=== PATIENT | male | born 1970 | race Caucasian/White ===

== ENCOUNTER 2020-10-24 16:27 | Emergency (ER) | payer BC, OTHER ==
[~2020-10-24] VITALS: Ht 177.8 cm; Wt 55.0 kg
[2020-10-24 16:38] VITALS: BP 122/69
[2020-10-24] MEDS ORDERED: ceFAZolin SODIUM 2 GM in IV DEXTROSE 5% 50 ML IV ONE (16:45)
--- NOTE | 2020-10-24 17:11 | RAD ---
EXAM: XR HAND_RIGHT 3 VIEWS 10/24/2020 4:51 PM CLINICAL INDICATION: Foreign body, with splinter fifth MCP joint. COMPARISON: None TECHNIQUE: 3 views of the right hand FINDINGS: No acute fracture. Alignment is normal. Joint spaces are maintained. No soft tissue abnorm ality. No radiopaque foreign body. IMPRESSION: No radiopaque foreign body. Electronically signed by: Billie Mckeon MD (10/24/2020 5:08 PM) [id number]
[2020-10-24] MEDS ORDERED: LIDOCAINE 2% 20 ML VIAL. IJ ONE (18:30)
[2020-10-24] MEDS ORDERED: CEPH500C PO (18:59)
--- NOTE | 2020-10-24 18:59 | PHYS DOC ---
Past History Past Medical History: No Pertinent History (ELIGIO COVINGTON APRN) Past Surgical History: Angioplasty (ELIGIO COVINGTON APRN) Smoking: Cigarettes, Less than 1pk/day Alcohol Use: None Drug Use: None (ELIGIO COVINGTON APRN) Adult General Chief Complaint Chief Complaint: PUNCTURE WOUND HPI HPI Patient is a 50-year-old male who presents emergency department chief complaint of right hand pain infection after suffering a splinter approximately 2 weeks ago while moving a wooden furniture. Patient states he thought he got the splinter out however it started turning red and becoming swollen over the past 2 weeks. Patient states his son squeezed the area and expelled purulent material. Patient fears that there might be a splinter left in his hand. Patient denies numbness or tingling, denies any loss of movement of the hand or fingers. Patient states his last tetanus immunization was less than 5 years ago. Patient denies any allergies to medications, states he sees Dr. Murray for primary care, states he has a cardiac history that he takes medications for. Patient denies chest pains or shortness of breath, denies recent fever or chills, patient denies rashes of his skin or swelling of his extremities or lymph nodes. Patient denies pain to the area of concern. Patient denies any other physical complaints or physical concerns. (ELIGIO COVINGTON APRN) Review of Systems Review of Systems 14 body systems of review of systems have been reviewed. See HPI for pertinent positives and negative responses, otherwise all other systems are negative, nonpertinent or noncontributory. (ELIGIO COVINGTON APRN) Current Medications Current Medications Current Medications Medications (Trade) Dose Ordered Sig/Yuli Start Time Stop Time Status Last Admin Dose Admin Cefazolin Sodium 2 gm/Dextrose 50 ml @ 100 mls/hr 1X ONCE 10/24/20 16:45 10/24/20 17:14 DC 10/24/20 17:14 100 MLS/HR Lidocaine HCl 20 ml 1X ONCE 10/24/20 18:30 10/24/20 18:31 DC (ELIGIO COVINGTON APRN) Allergies Allergies Allergies Uncoded Allergies Type Severity Reaction Last Updated Verified BEE VENOM Allergy Unknown 10/24/20 (ELIGIO COVINGTON APRN) Physical Exam Physical Exam Constitutional: Well developed, well nourished, no acute distress, non-toxic appearance. 50-year-old male in no apparent distress. HENT: Normocephalic, atraumatic. Eyes: Conjunctiva normal, no discharge. Neck: Normal range of motion, no stridor. Cardiovascular: No cyanosis appreciated, distal cap refill less than 2 seconds. Lungs & Thorax: Patient is in no respiratory distress, no audible adventitious lung sounds appreciated. Abdomen: Nontender, no abnormalities noted. Skin: Warm, dry, no erythema, no rash. See extremity note for focused skin assessment. Back: No tenderness, no deformities. Extremities: No tenderness, no cyanosis, no clubbing, ROM intact, no edema. Except for right hand near #5 MCP joint palmar aspect erythematous without purulent drainage, distal cap refill less than 2 seconds, full range of motion of phalangeal joints of the right hand, pain to palpation at palmar aspect #5 MCP joint area. Scant amount of serous drainage from palmar aspect erythematous area where patient states he had splinter foreign body injury. Patient reports this is the area that the purulent drainage was expelled from. Neurologic: Alert and oriented X 3, normal motor function, normal sensory function, no focal deficits noted. Psychologic: Affect normal, judgement normal, mood normal. (ELIGIO COVINGTON APRN) Current Patient Data Vital Signs Vital Signs Date Time Temp Pulse Resp B/P (MAP) Pulse Ox O2 Delivery O2 Flow Rate FiO2 10/24/20 16:38 98.4 75 16 122/69 97 (ELIGIO COVINGTON APRN) EKG EKG [] (ELIGIO COVINGTON APRN) Radiology/Procedures Radiology/Procedures [] (ELIGIO COVINGTON APRN) Heart Score C/O Chest Pain: No Risk Factors: Risk Factors: DM, Current or recent (<one month) smoker, HTN, HLP, family history of CAD, obesity. Risk Scores: Risk Factors: DM, Current or recent (<one month) smoker, HTN, HLP, family history of CAD, obesity. (ELIGIO COVINGTON APRN) Course & Med Decision Making Course & Med Decision Making Pertinent Labs and Imaging studies reviewed. (See chart for details) 50-year-old male, vital signs reviewed, presents emergency department concerning a possible splinter left in his hand from a splinter injury 2 weeks ago. Physical examination concerning for possible foreign body, area is erythematous, will order x-ray to rule out foreign body, 2 g Ancef related to puncture wound injury, ED planning will send home with prescription for 500 mg Keflex p.o. 4 times daily x10 days. Patient states he is amenable to this plan. Offered patient pain medication, patient states it does not hurt. Patient states he does not need any pain medication. X-ray unremarkable, did not show foreign body in area of concern, discussed with patient will anesthetize area and explore for foreign body, patient amenable to this plan, see I&D procedure note. No foreign body was appreciated with exploration of concern site, ordered bacitracin and Band-Aid for dressing, discussed with patient antibiotic use, follow-up with PCP this week for reevaluation of wound, return to ER precautions or concerns, patient states he has no further questions or concerns and was discharged home without incident. (ELIGIO COVINGTON APRN) Dragon Disclaimer Dragon Disclaimer This electronic medical record was generated, in whole or in part, using a voice recognition dictation system. (ELIGIO COVINGTON APRN) Foreign Body Removal Procedure Indication: Possible foreign body right hand palmar aspect #5 MCP joint skin surface area. Time: 1830 Confirmed: Patient, procedure, side, and site correct. Consent: Patient has given verbal consent. Performed by: [employer], [employer] Supervision Dr. Aguero present for critical aspects of the procedure including incision and post procedure exam. Preprocedure exam: Circulation motor and sensory intact. Procedural sedation: None. Location: Right hand palmar aspect #5 MCP joint skin surface area. Procedure: The area of the foreign body was prepped for procedure with 15-minute soak of Betadine solution. Local anesthesia over the foreign body site was achieved with 1 cc 2% lidocaine without epinephrine. The foreign body was then not found after exploration of area of concern. After the procedure the exploration site was cleansed and dressed with bacitracin and Band-Aid by ED nursing staff. The patient's tetanus status was up-to-date prior to arrival to the emergency department today, no tetanus immunization update was indicated for today's visit. Post procedure exam: Circulation, motor, sensory examination intact. The patient tolerated the procedure well. Complications: There were no complications Follow-up: Home care instructions given. Total time: 10 minutes. (ELIGIO COVINGTON APRN) Attending Co-Sign The patient was seen and interviewed as well as examined at the bedside. The chart was reviewed. The case was discussed. Agree with the plan of care. (ANAI AGUERO DO) Departure Departure: Impression: Primary Impression: Splinter in skin Additional Impression: Skin infection Disposition: HOME / SELF CARE / HOMELESS Condition: GOOD Referrals: KELLY MURRAY MD (PCP) Patient Instructions: Wound Care, [id number] Additional Instructions: You were seen today in the emergency department for a infection to your right hand where you suffered a splinter while carrying wooden furniture. The puncture site was infected, you were given 2 g of Ancef antibiotic through IV, I am prescribing you oral antibiotics that you will take 4 times a day for 10 days, please complete the whole antibiotic regimen. An x-ray was performed of your right hand noting the area where the splinter entered, there was no sign of a splinter on x-ray. The area around the splinter was anesthetized with lidocaine and explored for a foreign body, there were no's splinters or foreign bodies noted in the area. I believe the splinter has come out and is no longer in your skin of your right hand. Please continue to perform wound care with daily cleansing with soap and water and application of antibiotic ointment with a Band-Aid until healed. Please follow-up with your primary care physician Dr. Murray for a recheck of this wound sometime this week. Please return to the emergency department immediately for worsening symptoms or other concerns. It was a pleasure taking care of you today in the emergency department and I thank you for allowing me to participate in your emergency healthcare needs. EMERGENCY DEPARTMENT GENERAL DISCHARGE INSTRUCTIONS Thank you for coming to [facility] (ED) today and trusting us with you care. We trust that you had a positivie experience in our Emergency Department. If you wish to speak to the department management, you may call the director at [phone]. YOUR FOLLOW UP INSTRUCTIONS ARE FOLLOWS: 1. Do you have a private Doctor? If you do not have a private doctor, please ask for a resource list of physicians or clinics that may be able to assist you with follow up care. 2. The Emergency Physician has interpreted your x-rays. The X-Ray specialist will also review them. If there is a change in the findings, you will be notified in 48 hours when at all possible. 3. A lab test or culture has been done, your results will be reviewed and you will be notified if you need a change in treatment. ADDITIONAL INSTRUCTIONS AND INFORMATION: 1. Your care today has been supervised by a physician who is specially trained in emergency care. Many problems require more than one evaluation for a complete diagnosis and treatment. We recommend that you schedule your follow up appointment as recommended to ensure complete treatment of you illness or injury. If you are unable to obtain follow up care and continue to have a problem, or if your condition worsens, we recommend that you return to the ED. 2. We are not able to safely determine your condition over the phone nor are we able to give sound medical advice over the phone. For these safety reasons, if you call for medical advice we will ask you to come to the ED for further evaluation. 3. If you have any questions regarding these discharge instructions please call the ED at [phone]. SAFETY INFORMATION: In the interest of safety, wellness, and injury prevention; we encourage you to wear your sealbelt, if you smoke; quite smoking, and we encourage family to use a protective helmet for bicycling and other sporting events that present an increased risk for head injury. IF YOUR SYMPTOMS WORSEN OR NEW SYMPTOMS DEVELOP, OR YOU HAVE CONCERNS ABOUT YOUR CONDITION; OR IF YOUR CONDITION WORSENS WHILE YOU ARE WAITING FOR YOUR FOLLOW UP APPOINTMENT; EITHER CONTACT YOUR PRIMARY CARE DOCTOR, THE PHYSICIAN WHOSE NAME AND NUMBER YOU WERE GIVEN, OR RETURN TO THE ED IMMEDIATELY. Scripts Cephalexin (CEPHALEXIN) 500 Mg Capsule 1 CAP PO QID for SKIN INFECTION, #40 CAP 0 Refills Prov: ELIGIO COVINGTON APRN 10/24/20 Problem Qualifiers ELIGIO COVINGTON APRN Oct 24, 2020 18:59 ANAI AGUERO DO Oct 25, 2020 06:28
[2020-10-24] MEDS ORDERED: BACITRACIN ZINC TOPICAL OINT PACKET. TP ONE (19:00)
== END 2020-10-24 19:20 | disposition home or self-care (01) ==
LOC: ER 16:27
DX: S60.551A Superficial foreign body of right hand, initial encounter (principal); W22.8XXA Striking against or struck by other objects, initial encounter; Y93.89 Activity, other specified; Y92.89 Other specified places as the place of occurrence of the external cause; Y99.8 Other external cause status
CPT/HCPCS: 10120; 73130; 99285; J0690; J2001

== ENCOUNTER → 2021-05-18 | Outpatient (CLI) | payer BC ==
[~2021-05-18] MED LIST: CEPH500C PO; IOHEXOL 300 MG/ML 75 ML VIAL. IV ONE
--- NOTE | 2021-05-18 10:49 | RAD ---
CT CHEST+ABD+PELVIS W History: Abdominal pain. Technique: CT of the chest, abdomen and pelvis were performed with intravenous contrast. Coronal and sagittal reconstructions were performed. Exposure: One or more of the following individualized dose reduction techniques were utilized for thi s examination: 1. Automated exposure control 2. Adjustment of the mA and/or kV according to patient size 3. Use of iterative reconstruction technique. Comparison: None Findings: Chest: No pulmonary embolism. No aortic aneurysm or dissection. Coronary artery calcifications. Sever e pulmonary emphysema. Right upper lobe linear atelectasis and scarring. No pneumothorax. No pleural effusion. Mild mucus plugging. 6 mm right upper lobe pleural-based nodule (series 4 image 36). 2 mm right upper lobe pulmonary nodul e (series 4 image 21). 2 mm right middle lobe pulmonary nodule (image 53). 2 mm left lower lobe pulmo nary nodule (image 100). 2 mm left lower lobe pulmonary nodule (image 78). Calcified left lower lobe pulmonary nodule, likely prior granulomatous disease. Mild bronchial wall thickening. Abdomen and pelvis: The liver, spleen, adrenal glands, pancreas and gallbladder are unremarkable. No biliary ductal dilatation. Patent portal and hepatic veins. No hydronephrosis. No renal calculus. Mil d urinary bladder wall thickening. Mildly enlarged appendix measures 9 mm with wall thickening. There is adjacent ascites. No abscess. N o pneumoperitoneum. Mildly prominent fluid-filled loops of small bowel distally with wall thickening. No pneumatosis. No portal venous gas. Moderate abdominal and pelvic ascites. Diffuse lack of intra-a bdominal and subcutaneous fat. No pathologic lymphadenopathy. Mild atheromatous plaque within the non aneurysmal abdominal aorta and branch vessels. Bones: Subtle calcification along the posterior epidural space within the thoracic spine, nonspecific . Transitional lumbosacral anatomy with lumbarization of S1. Mild retrolisthesis L5 on S1 and L3 on L 4. Vestigial ribs at L1. Multilevel lumbar spondylosis. Impression: Chest CT: 1. Severe pulmonary emphysema with right upper lobe linear atelectasis and scarring. 2. Multiple pulmonary nodules. Recommend 6-12 month follow-up chest CT without contrast. 3. Mild linear calcifications along the posterior epidural space within the thoracic spine, may rela te to prior insult, infection or intervention. Abdomen and pelvis CT: 1. Enlarged thick-walled appendix. Recommend correlation for acute appendicitis. 2. Moderate abdominal pelvic ascites. Suggest fluid sampling and further testing. 3. Mildly prominent fluid-filled loops of bowel wall thickening, may relate to venous congestion or enteritis. FOR INTERNAL CODING PURPOSES Critical result: Findings discussed with KELLY MURRAY MD at 05/18/2021 10:38 AM. RESULT CODE: (C) Electronically signed by: Ky Whitaker DO (05/18/2021 10:46 AM) [facility]
== END ==
LOC: CT 09:09
PROVIDERS: ATTEND Specialist
DX: R91.8 Other nonspecific abnormal finding of lung field (principal); J43.9 Emphysema, unspecified; J98.11 Atelectasis; T17.990A Other foreign object in respiratory tract, part unspecified in causing asphyxiation, initial encounter; J98.4 Other disorders of lung; I25.10 Atherosclerotic heart disease of native coronary artery without angina pectoris; M47.816 Spondylosis without myelopathy or radiculopathy, lumbar region; K35.80 Unspecified acute appendicitis; R18.8 Other ascites; M43.16 Spondylolisthesis, lumbar region; X58.XXXA Exposure to other specified factors, initial encounter; Y93.89 Activity, other specified; Y92.89 Other specified places as the place of occurrence of the external cause; Y99.8 Other external cause status
CPT/HCPCS: 71260; 74177; Q9967